=== PATIENT | male | born 1985 | race African-American/Black ===

== ENCOUNTER 2022-08-17 01:49 | Emergency (ER) | payer OTHER ==
[~2022-08-17] VITALS: Ht 193 cm; Wt 114.3 kg
[2022-08-17 03:20] LABS: BASOPHILS % 0.4 % (0.0-2.0); EOSINOPHILS % 2.3 % (0.0-5.0); HEMATOCRIT. 40.7 % (42.0-52.0); HEMOGLOBIN. 13.9 g/dL (14.0-18.0); LYMPHOCYTES % 43.1 % (20.0-50.0); MEAN CORPUSCULAR HEMOGLOBIN 28.3 pg (28.0-32.0); MEAN PLATELET VOLUME 8.3 fl (7.4-10.4); MONOCYTES % 10.5 % (2.0-8.0); NEUTROPHILS % 43.7 % (40.0-76.0); PLATELET 240 x1000/uL (130-400); RED CELL DISTRIBUTION WIDTH 13.8 % (11.6-14.6)
[2022-08-17 03:23] LABS: CLARITY URINE CLEAR (CLEAR); COLOR URINE YELLOW (YELLOW); KETONES URINE NEGATIVE (NEGATIVE); LEUKOCYTE ESTERASE URINE NEGATIVE (NEGATIVE); NITRITE URINE NEGATIVE (NEGATIVE); OCCULT BLOOD URINE NEGATIVE (NEGATIVE); PH URINE 5.5 (4.5-8.0); PROTEIN URINE NEGATIVE (NEGATIVE); SPECIFIC GRAVITY URINE 1.022 (1.005-1.030)
[2022-08-17 03:36] LABS: CHLORIDE 107 mEq/L (98-107)
[2022-08-17 03:44] LABS: ETHANOL BLOOD < 10 mg/dL (-10)
[2022-08-17 03:47] LABS: *AMPHETAMINES SCREEN URINE NEGATIVE (NEGATIVE); *BARBITURATES SCREEN URINE NEGATIVE (NEGATIVE); *BENZODIAZEPINES SCREEN URINE NEGATIVE (NEGATIVE); *COCAINE SCREEN URINE NEGATIVE (NEGATIVE); CANNABINOID URINE SCREEN PRESUMTIVE POSITIVE (NEGATIVE); METHADONE URINE SCREEN NEGATIVE (NEGATIVE); OPIATES URINE SCREEN NEGATIVE (NEGATIVE); PHENCYCLIDINE URINE SCREEN NEGATIVE (NEGATIVE)
[2022-08-17] MEDS: SERTRALINE HCL 25MG TABLET PO SCH (11:15)
[2022-08-17] MEDS ORDERED: ACETAMINOPHEN 325MG TABLET PO ONE (21:00)
[2022-08-18] MEDS: SERTRALINE HCL 25MG TABLET PO SCH (09:35)
[2022-08-18 17:41] VITALS: BP 123/77
== END 2022-08-18 19:09 ==
LOC: ER 01:49
DX: R45.851 Suicidal ideations (principal); Z20.822 Contact with and (suspected) exposure to COVID-19
CPT/HCPCS: 36415; 80053; 80305; 80307; 80320; 80329; 81003; 85025; 87426; 99285; C9803; G0480